=== PATIENT | female | born 1955 | race Hispanic/Latino ===

== ENCOUNTER 2017-04-14 02:54 | Inpatient (IN) | payer OTHER ==
[~2017-04-14] VITALS: Ht 144.8 cm; Wt 108.9 kg
[~2017-04-14 02:54] MED LIST: ASPIRIN EC325 MG PO; CELEXA40 MG PO; ELIQUIS5 MG PO; FUROSEMIDE20 MG PO; GABAPENTIN100 M2 PO; HYDROXYZINE50 MG PO; LASIX20 MG PO; MEDROL4 M2 PO; MIRALAX17 G1 PO; NAPROSYN 500 M500 MG PO; NEURONTIN100 MG PO; POTASSIUM CHLO25 MEQ PO; PROTONIX 40MG T40 MG PO; SIMVASTATIN20 M2 PO; TRAMADOL HCL50 M1 PO; TRAZODONE100 MG PO; TYLENOL WITH C1 EACH PO; VALIUM2 MG PO; VITAMIN D31000 IU PO
--- NOTE | 2017-04-14 10:03 | Admission Core Measures ---
Admission Meds I reviewed the following Meds: Current Medications Sig/Liana Start time Last Medication Dose Stop Time Status Admin Cefazolin Sodium 3,000 MG ONCE 04/14 0000 NR (Kefzol-Ancef Inj) 04/14 2359 Heparin Sodium 5,000 UNIT ONCE 04/14 0000 NR (Porcine) 04/14 2359 Acute Coronary Syndrome Inclusion Criteria ACS Diagnosis No Inpatient Core Measures LDL Reminder: If No, please order W/I first 24hr of stay Congestive Heart Failure Inclusion Criteria CHF Diagnosis No Cerebrovascular accident Inclusion Criteria CVA/TIA Diagnosis No Inpatient Core Measures Bedside Swallow Eval Reminder: If BSE failed, place ST order Antithrombotic Reminder: Order Antithrombotic Medication by end of day 2 Antithrombotic Reminder: Document Reason Antithrombotic Not ordered by end of day 2 AFIB/Flutter Reminder: If Present, add to problem list AFIB/Flutter Reminder: Order Anticoag Medication for pts with AFIB/Flutter Atherosclerosis Reminder: If Present, add to problem list LDL Reminder: If No, please order W/I first 24hr of stay PT Order Reminder: If No, please order Venous thromboembolism Inpatient Core Measures VTE Risk Factors: Age > 40, Obesity, Previous VTE, Surgery No [facility] VTE prophylaxis d/t No contraindications No VTE Pharm Prophylaxis d/t No contraindications Inclusion Criteria - Per Current guidelines, there needs to be overlap - treatment for the first 5 days of Warfarin therapy. - Parenteral Anticoagulation (IV or SC) needs to be - given along with Warfarin therapy. VTE Diagnosis No VTE Type NONE VTE Confirmed by (Test) NONE Problem List As ranked by this Provider includes Assessment & Plan 1. S/P laparoscopic sleeve gastrectomy 2. Morbid obesity 3. Pulmonary embolism 4. Dependent edema 5. Depression HOME MEDS Home Med List Apixaban (Eliquis) 5 MG TAB 1 TAB PO BID PE (Reported) Citalopram Hydrobromide (Celexa) 40 MG TAB 1 TAB PO DAILY MENTAL HEALTH ( Reported) Furosemide 20 MG TAB 1 TAB PO DAILY WATER PILL (Reported) Gabapentin 100 MG CAPSULE 1 CAP PO TID PRN ANXIETY (Reported) Hydroxyzine Hydrochloride (Hydroxyzine) 50 MG TAB 1 TAB PO QPM ANXIETY ( Reported) Pantoprazole Sodium (Protonix) 40 MG TAB 40 MG PO DAILY GERD (Reported) Polyethylene Glycol 3350 (Miralax) 17 GRAM POWD.PACK 1 PAC PO DAILY CONSTIPATION (Reported) Simvastatin (Simvastatin*) 20 MG TABLET 1 TAB PO QPM CHOLESTEROL (Reported) TRAZODONE HCL (Trazodone HCl) 100 MG TAB 1 TAB PO QPM SLEEP (Reported)
--- NOTE | 2017-04-14 13:22 | Patient Discharge Instructions ---
Discharge Instructions General Discharge Information You were seen/treated for: MORBID OBESITY You had these procedures: laparoscopic sleeve gastrectomy, hiatal hernia repair (04/14/17) Watch for these problems: fever>101.3, increased pain, redness/swelling/drainage, dizziness, shortness of breath, chest pain No bath, but you may shower: Yes Other wound care: ok to remove outer dressings. leave white steri strips in place. expect drainage from previous drain site, for which a dry guaze dressing may be used to cover. Diet Continue normal diet: No Recommended Diet: Bariatric Additional DIET Information: weekly bariatric stage diet advancements, as directed, as tolerated Activity Full Activity/No Limits: No Activity Self Limited: Yes Pounds, do NOT lift more than: 10 Other activity limits: no heavy lifting. no strenuous activity. Acute Coronary Syndrome Inclusion Criteria At DC or during hospital stay patient has or had the following: ACS DIAGNOSIS No Discharge Core Measures Meds if any: Prescribed or Continued at Discharge Meds if any: NOT Prescribed or Continued at Discharge Congestive Heart Failure Inclusion Criteria At DC or during hospital stay patient has or had the following: CHF DIAGNOSIS No Discharge Core Measures Meds if any: Prescribed or Continued at Discharge Meds if any: NOT Prescribed or Continued at Discharge Cerebrovascular accident Inclusion Criteria At DC or during hospital stay patient has or had the following: CVA/TIA Diagnosis No Discharge Core Measures Meds if any: Prescribed or Continued at Discharge Meds if any: NOT Prescribed or Continued at Discharge Venous thromboembolism Inclusion Criteria VTE Diagnosis No VTE Type NONE VTE Confirmed by (Test) NONE Discharge Core Measures - Per Current guidelines, there needs to be overlap - treatment for the first 5 days of Warfarin therapy. - If discharged on Warfarin prior to 5 days of - overlap therapy, the patient will need to be - assessed for post discharge needs including - *Post discharge parental anticoagulation - *Warfarin and/or parental anticoagulation education - *Follow up date to check INR post discharge At least 5 days overlap therapy as Inpatient No Meds if any: Prescribed or Continued at Discharge Note: Overlap Therapy is Warfarin and Anticoagulant Meds if any: NOT Prescribed or Continued at Discharge
--- NOTE | 2017-04-14 13:24 | Surg Short-stay <48hrs Dis Sum ---
Visit Information Visit Dates Admission Date: 04/14/17 Discharge Date: 04/16/17 Surgical Short Stay DC Summary Admission Diagnosis: Morbid Obesity BMI 54, HOLLIS, Depression, h/o PE, hiatal hernia Final Diagnosis: same, s/p Laparoscopic Sleeve Gastrectomy, Laparoscopic Hiatal hernia repair Procedure(s): Surgery Date: 04/14/17 Name of Procedure: Laparoscopic Sleeve Gastrectomy, Laparoscopic Hiatal hernia repair Summary/Significant Findings: Electively scheduled laparoscopic sleeve gastrectomy and hiatal hernia repair by on 04/14/17, which went routinely. Pain medication transitioned from iv to oral medication prior to discharge to home. DEVIN drain placed during surgery removed prior to her discharge to home. She was tolerating a stage 1 bariatric diet prior to discharge. Her home medication eliquis, was re-started post- operatively prior to her discharge home. Condition at Discharge: stable Discharge Disposition: home or self care Discharge instructions provided to patient/family: Yes Post discharge follow-up plan: pre-printed instructions provided follow up in one week
[2017-04-14] MEDS ORDERED: HYCET 7.5 MG-3473 ML PO (15:23)
--- NOTE | 2017-04-14 17:08 | Operative Report ---
Operative/Inv Procedure Report Surgery Date: 04/14/17 Name of Procedure: Laparoscopic Sleeve Gastrectomy, Laparoscopic Hiatal hernia repair Pre-Operative Diagnosis: Morbid Obesity BMI 54, HOLLIS, Depression, h/o PE, hiatal hernia Post-Operative Diagnosis: Same Estimated Blood Loss: less than 50ml Surgeon/Tanning Consultant: CLINT FOWLER DO Anesthesia: general endotracheal tube IV Fluids: 1200 cc Drains: 10 Fr RUQ DEVIN Drain Specimens: Stomach Complications: None Condition: Stable Operative Indication: This is a 61-year-old female that presented to the office for workup for bariatric surgery. After appropriate workup was completed I discussed with the patient the band, the sleeve, and the gastric bypass. The patient chose to undergo a sleeve gastrectomy. All risks including but not limited to bleeding, infection, leak, stricture, injury to surrounding bowel/esophagus/stomach/liver/ spleen, long-term reflux, DVT/PE, and mortality of 11/999 patients were discussed in detail. The patient understood everything and decided to proceed. Operative/Procedure Note Note: The patient was brought to the operating room and placed on the operating room table in supine position. Venodyne stockings were placed and adequate general endotracheal anesthesia was obtained. The patient was prepped and draped in standard surgical fashion. Began the procedure by making a 2 cm transverse incision supraumbilically and slightly to the left of the midline. Then using a 12 mm clear Visiport and a 10 mm 0 laparoscope, the abdominal cavity was accessed. Great care was taken to go through the anterior rectus sheath, the posterior rectus sheath, and through the peritoneum. Once we entered the peritoneum the abdominal cavity was insufflated to 15 mmHg. Upon initial examination no obvious gross pathology was seen. Accessory trocars were placed, 5 mm in the epigastrium for the Salas liver retractor. The retractor was inserted and the liver was retracted anteriorly exposing the hiatus, a small hiatal hernia was seen. 5 mm ports were placed in the right and left upper quadrant, a 5 mm left lateral port, and a 15 mm right lateral port. Began the procedure by mobilizing the greater curvature of the stomach approximately 7 cm from the pylorus. Once the retrogastric space was reached the whole greater curvature was mobilized maintaining hemostasis using Harmonic scalpel. Full hiatal dissection was performed, a small hiatal hernia was seen. The left elan of the diaphragm was dissected away from the esophagus, reducing the hernia sac. We then brought our attention to the right elan, the pars flaccida was opened until the right elan was clearly visualized. Following this the right elan was dissected away from the esophagus as well and the esophagus was circumferentially dissected out of the chest. At the completion of dissection the esophagus was in the abdominal cavity for about 2-3 cm. The esophagus was retracted anteriorly and the hiatus was closed using 2-0 Tycron suture. At the completion of the closure there was ample room for the esophagus and the hiatus was adequately closed. Posterior adhesions were taken down using Harmonic scalpel as well. Once the stomach was adequately mobilized a 38 Norwegian bougie was inserted and placed along the lesser curvature of the stomach. Once the bougie was in the appropriate position we began creating our sleeve, two 60 mm black staple loads with seamguard followed by three 60 mm purple staple loads with seamguard as well. Great care was taken to leave ample room at the incisura angularis, to prevent any twisting or kinking of the sleeve, to stay lateral to the esophagogastric fat pad, and to do a full fundal excision. At the completion of the staple line the staple line was examined, it appeared intact and no obvious bleeding was noted. The bougie was removed, the sleeve was lying nicely without any twisting or kinking. The resected stomach was removed through the right lateral port site. The port and the left upper quadrant were irrigated until clear. A 10 Norwegian DEVIN drain was placed through the right upper quadrant incision under the liver and over the spleen. All ports were removed under direct visualization no obvious bleeding was noted. The 15 mm port site fascia was closed using 0 Vicryl suture. The skin was closed using 4-0 Monocryl. Steri-Strips and dressings were placed. The patient was successfully extubated and transferred to the recovery room in stable condition. The patient tolerated the procedure well with no complications. Findings: 4 cm hiatal hernia, 38 Fr Bougie CC: YUDELKA POLLOCK,SABINA
[2017-04-14 20:32] VITALS: BP 140/77
--- NOTE | 2017-04-14 20:48 | NUR ---
PATEINT ADMITTED FROM PACU VIA STRETCHER. ORIENTED TO ROOM CALL SERVICE DELIVERY MANAGER. A/O X 3. 2.5 L NC, POX-97%. 6 BANDAGES TO ABD INCLUDING DEVIN DRAIN SITE. FLUIDS RUNNING ORDERED.DUE TO VOID AT 2200. VSS. DENIES PAIN. WILL CONTINUE TO MONITOR.
[2017-04-14 23:46] VITALS: BP 122/78
--- NOTE | 2017-04-15 00:13 | PN- Bariatrics ---
Subjective Subjective: POSTOP CHECK SLEEPING. DID NOT WAKE. PER RN, TAKING SIPS OF SONALI DIET WITHOUT N/V. PAIN CONTROLLED WITH PAIN MEDS. Objective Vital Signs and I&Os Vital Signs Date Time Temp Pulse Resp B/P B/P Pulse O2 O2 Flow FiO2 Mean Ox Delivery Rate 04/14 2346 98.0 60 20 122/78 92 04/14 2156 Nasal 2.0L Cannula 04/14 2039 97 Nasal 2.5L Cannula 04/14 2032 98.1 63 18 140/77 97 Nasal 2.5L Cannula 04/14 2014 97 Nasal 2.5L Cannula Intake & Output 04/15 0804/15 0000 04/14 1600 04/14 0800 04/14 0000 04/13 1600 Intake Total 60 Output Total 300 Balance -240 Intake, Oral 60 Output, Urine 300 Patient 240 lb Weight Physical Exam: GEN: NAD SLEEPING COMFORTABLE, DID NOT WAKE. Assessment/Plan Assessment/Plan A: POD0, STABLE, DID NOT WAKE P: PRN PAIN MEDS NPO P MN, UGI IN AM DVT PPX HOLD ELIQUIS & LASIX OOB, AMBULATE WILL DW ATTENDING Core Measures/Miscellaneous Venous Thromboembolism VTE Risk Factors: Surgery VTE Contraindications: No Contraindications VTE Diagnosis: No VTE Type: NONE VTE Confirmed by (Test): NONE Beta Salena Is Beta Salena a Home Med? No Antibiotics Is Patient on Antibiotics? Yes If Yes: prophylaxis
[2017-04-15 06:24] VITALS: BP 122/86
--- NOTE | 2017-04-15 07:13 | PN- Bariatrics ---
See Addendum Subjective Subjective: The patient was seen this morning postoperatively day #1. She reports her pain is under adequate control and she is without nausea this morning. She has no other complaints the current time and denies any chest pain or difficulty breathing. Objective Vital Signs and I&Os Vital Signs Date Time Temp Pulse Resp B/P B/P Pulse O2 O2 Flow FiO2 Mean Ox Delivery Rate 04/15 624 98.6 50 22 122/86 95 04/15 0400 98 CPAP 04/15 0000 CPAP 04/15 0000 CPAP 04/14 2346 98.0 60 20 122/78 92 04/14 2156 Nasal 2.0L Cannula 04/14 2039 97 Nasal 2.5L Cannula 04/14 2032 98.1 63 18 140/77 97 Nasal 2.5L Cannula 04/14 2014 97 Nasal 2.5L Cannula Intake & Output 04/15 0800 08 0000 04/14 1600 04/14 0800 04/14 0000 04/13 1600 Intake Total 750 740 Output Total 850 600 Balance -100 140 Intake, IV 750 650 Intake, Oral 90 Output, 100 Drainage Output, Urine 750 600 Patient 240 lb Weight Physical Exam: Gen.: Alert and in no obvious distress Skin: Warm and dry Cardiac: S1-S2 regular Pulmonary: Bilateral breath sounds are equal and slightly decreased at bases Abdomen: Soft, obese, appropriate incisional tenderness, bowel sounds positive. Port sites are clean, dry, and intact. His DEVIN 1 holding suction with serosanguineous drainage in the bulb. Extremities: Bilateral lower are warm without calf tenderness or significant edema. Assessment/Plan Assessment/Plan Assessment: 61-year-old female status post laparoscopic sleeve gastrectomy postoperative day 1. The patient is progressing as expected and her pain is under adequate control. Plan: Cancel upper GI and start bariatric stage I diet Follow-up morning laboratory studies Decrease IV fluids Continue current pain regiment GI and DVT prophylaxis Restart eliquis first dose this afternoon Incentive spirometry Core Measures/Miscellaneous Venous Thromboembolism VTE Risk Factors: Surgery VTE Contraindications: No Contraindications VTE Diagnosis: No VTE Type: NONE VTE Confirmed by (Test): NONE Beta Salena Is Beta Salena a Home Med? No Antibiotics Is Patient on Antibiotics? No
[2017-04-15 14:19] VITALS: BP 122/60
--- NOTE | 2017-04-15 14:59 | NUR ---
Consult for diet instruction received for s/p gastric sleeve. Thank you for consult. Visited with pt, offered new diet copy which pt took, but also has copy at home. Pt denies further questions. Encouraged to ask for referal for post-op nutrition visits.
[2017-04-15 21:42] VITALS: BP 128/72
--- NOTE | 2017-04-15 23:08 | NUR ---
ALERT AND ORIENTED X 3. ON ROOM AIR. DENIES SHORTNESS OF BREATH. LUNGS CLEAR VITAL SIGNS STABLE. DENIES CHEST PAIN. + PULSES. DENIES NUMBNESS/TINGLING NO DISCOMFORT/DISTRESS NOTED. DSGS TO ABD ARE C/D/I 70ML OF SS FUILD DRAINED FROM DEVIN. SKIN C/D/I. STEADY GAIT
[2017-04-16 06:10] VITALS: BP 116/82; BP 120/60
--- NOTE | 2017-04-16 07:17 | PN- Student ---
KARY GILLETTE 04/16/17 0658: Subjective Subjective: Patient is currently awake and comfortable with no complaints. She states she has no pain except for the DEVIN drain site, which she hopes to have out as soon as possible. She is tolerating water po with no nausea/vomiting or discomfort. She has been getting up frequently to urinate and is passing gas. Objective Objective: Vital Signs Result Date Time Pulse Ox 93 04/16 610 B/P 116/82 04/16 610 O2 Delivery Room Air 04/16 610 Temp 98.0 04/16 610 Pulse 53 04/16 610 Resp 20 04/16 610 O2 Flow Rate 2.0L 04/14 2156 Intake & Output 04/16 0000 04/15 1600 04/15 0800 Intake Total 701 250 9245 Output Total 510 376 4539 Balance -340 -45 300 Intake, IV 200 1450 Intake, Oral 300 240 350 Output, 140 85 100 Drainage Output, Urine 506 670 4686 61 y/o female s/p lap sleeve gastrectomy & hiatal hernia repair on 04/14. Devin drain in place, ~50 cc serosanguanous fluid Bilateral IVs in place in hands, disconnected, no inflammation/erythema/pain Wounds - dressings slightly soiled with dried blood, but not saturated, DEVIN drain site dry and clean but painful General: Awake, alert, oriented Lungs: CTAB, no wheezes, rales or rhonchi, no dyspnea Heart: RRR, no M, R, G Abdomen: hyperactive bowel sounds, non-distended, tymapnic, soft, non-tender to light and deep palpation with the exception of DEVIN drain site Extremities: no pain/edema/erythema in lower extremities, motor function and sensation in tact bilaterally Wounds: no edema/erythema, nontender, dressings in place, slightly dirty Assessment/Plan Assessment: 61 y/o female s/p lap sleeve gastrectomy with hiatal hernia repair on . She is in no pain, has no nausea and recovering as expected. Plan: Maintain pain management as needed ?Remove DEVIN drain today Dressing change ? DC home today Advance diet to stage 2 as tolerated RIVER ALMAZAN 04/16/17 9507: Assessment/Plan Plan: AGREE WITH ABOVE PA-S NOTE TOLERATING STAGE 1 DIET DEVIN DRAIN REMOVED PAIN CONTROLLED ELIQUIS RESTARTED YESTERDAY D/C HOME TODAY WILL D/W
== END 2017-04-16 09:40 | DRG 403 ==
LOC: 2NB 02:54 → SDA 02:54 → ENRESERV 18:06 → 2NB 19:40
PROVIDERS: ADMIT Surgery
PROC: 0BQR4ZZ (ICD-10-PCS; principal; 2017-04-14)
PROC: 0BQS4ZZ (ICD-10-PCS; principal; 2017-04-14)
PROC: 0DB64Z3 Excision of Stomach, Percutaneous Endoscopic Approach, Vertical (ICD-10-PCS; principal; 2017-04-14)
PROC: 3E0T3CZ (ICD-10-PCS; 2017-04-14)
DX: E66.01 Morbid (severe) obesity due to excess calories (principal); F32.9 Major depressive disorder, single episode, unspecified; K44.9 Diaphragmatic hernia without obstruction or gangrene; Z68.43 Body mass index [BMI] 50.0-59.9, adult; K21.9 Gastro-esophageal reflux disease without esophagitis
CPT/HCPCS: 2NBSP; 88307; C9399; J0131; J0690; J1170; J1644; J2405; J7042